=== PATIENT | female | born 1955 | race Caucasian/White ===

== ENCOUNTER → 2016-10-14 | Outpatient (CLI) | payer OTHER ==
[~2016-10-14] MED LIST: ANTIVERT; ANTIVERT PO; NO MEDICATIONS; NORVASC PO; PHENERGAN25 M1; PHENERGAN25 MG PO; ZITHROMAX PO
--- NOTE | ~2016-10-14 | MY6 ---
[facility] A Service of [facility] & [facility] RADIOLOGY TEXT RESULTS PATIENT: COREEN BLACK LOCATION: [facility] : 59 UNIT #: [id number] AGE: [address]: Jennifer Lund MD SEX: F ORDER DR: [id number] [facility] [address] [place], [place] [address] [id number] O MR#: [id number] Acc #: [id number] NAME: COREEN BLACK : 1955 SEX: F STUDY DATE/TIME: 10/14/2016 UNIT: [facility] ROOM: STUDY DESCRIPTION: MY Mammogram Dx Dig Edi Attending Physician: Jennifer Lund M.D. Ordering Physician: Jennifer Lund M.D. Primary Care Physician: Jennifer Lund M.D. MEDICAL IMAGING REPORT This report is preliminary unless electronic signature is present EXAM Bilateral digital diagnostic mammogram. INDICATIONS Abnormal mass in the left breast with calcifications and a small nodule measuring 5 mm in size in the right breast. The patient's only old study is from 11/20/2015. Additional workup was recommended at that time, but the patient did not have insurance, and she has just returned now. TECHNIQUE Today's study includes MLO, CC and straight ML view of the left breast and spot compression views of the right breast, as well as a straight ML view. They are all done with digital technique. FINDINGS The right images again show a small nodule measuring 5 mm in diameter. To about 3 o'clock in the breast, it is best seen on the CC view. There may be a small lymph node medial to it. This is unchanged since prior study which is 10 months ago. In the left breast, there is a large well circumscribed dense mass just behind the nipple. It measures 4.5 x 4.7 cm and has increased in size significantly since the prior study. The ultrasound shows a big complex lesion with movable internal echoes as well as solid material that has increased vascularity. According to the patient, this has been aspirated before in the surgeon's office, and there are also calcifications anterior to this lesion. There are several calcifications present. I believe they have a benign appearance and they are stable over last 10 months. IMPRESSION 1. 4.7 cm lesion in the retroareolar region of the left breast, on ultrasound, it is a complex abnormality, with solid and cystic components. An ultrasound-guided aspiration biopsy is recommended. [facility] A Service of [facility] & [facility] RADIOLOGY TEXT RESULTS PATIENT: COREEN BLACK LOCATION: [facility] : 59 UNIT #: [id number] AGE: [address]: Jennifer Lund MD SEX: F ORDER DR: The solid component should be biopsied with core technique, and the fluid can be aspiration for cytology. 2. Calcifications anterior to the mass in the left breast are likely benign and stable with a 10-month period. I would recommend a repeat mammogram in 6-9 months to document stability. There is also a 4-5 mm nodule in the right breast which is stable over the last 10 months, and that can be evaluated at the same time with repeat mammogram on the right side. BIRADS category 4. 3. The patient states she is going to go see the surgeon, , on Tuesday, so we have delayed scheduling the ultrasound aspiration biopsy until she has seen the surgeon. I have notified the breast care advocates of the patient's name. Patients over the age of 40 are entered into a reminder system with target due date for the next mammogram. A result letter will also be sent to the patient. BIRADS: 4 Suspicious abnormality; biopsy should be considered. Dictated by... Abel Delgado M.D. THIS IS AN ELECTRONICALLY VERIFIED REPORT Abel Delgado M.D. at 10/15/2016 7:09 AM OLIVE/laine TD: 10/14/2016 15:44 JOB #: [id number] MEDICAL IMAGING REPORT Page 1 of 1 COPY
--- NOTE | ~2016-10-14 | US17 ---
[facility] A Service of [facility] & [facility] RADIOLOGY TEXT RESULTS PATIENT: COREEN BLACK LOCATION: [facility] : 59 UNIT #: [id number] AGE: [address]: Jennifer Lund MD SEX: F ORDER DR: [id number] [facility] [address] [place], [place] [address] [id number] O MR#: [id number] Acc #: [id number] NAME: COREEN BLACK : 1955 SEX: F STUDY DATE/TIME: 10/14/2016 13:48 UNIT: [facility] ROOM: STUDY DESCRIPTION: US Breast Bilateral Attending Physician: Jennifer Lund M.D. Ordering Physician: Jennifer Lund M.D. Primary Care Physician: Jennifer Lund M.D. MEDICAL IMAGING REPORT This report is preliminary unless electronic signature is present REVISED REPORT SEE ADDENDUM EXAM Bilateral breast ultrasound INDICATION 5 mm nodule right breast 3 o'clock and large nearly 5 cm mass behind the left nipple. FINDINGS Ultrasound of the right breast 3 o'clock shows a small hypoechoic area measuring 5 x 3 mm in size. It is difficult tell if this represents the nodule on the mammogram. It is partially cystic and appears benign and the ultrasound of the retroareolar region of the left breast shows a 4.0 x 4.0 x 3.8 cm well circumscribed and L view has echogenic fluid anteriorly and this has moving debris within it. The posterior portion of the lesion is much more echogenic and appears to be in soft tissue but could represent subtle debris. There is a polypoid lesion hanging in the middle of the lesion that is up to 2 cm in diameter and it has internal flow and has a stalk attaching it to the anterior wall. IMPRESSION 1. No suspicious findings noted on the right side. The nodules seen on the mammogram has been stable now for 10 months and I suggest followup mammogram in 6-9 months. 2. The left breast abnormality is very complex and suspicious. It is a large cystic lesion with a polypoid lesion projecting in the middle of it and the polypoid lesion is at least 2 cm in diameter and has internal flow. The fluid within the cyst that has extensive fine STS. [facility] A Service of [facility] & [facility] RADIOLOGY TEXT RESULTS PATIENT: COREEN BLACK LOCATION: [facility] : 59 UNIT #: [id number] AGE: [address]: Jennifer Lnud MD SEX: F ORDER DR: debris that moves with sound waves and there is a much denser appearing posterior layer that might represent sediment. Ultrasound-guided aspiration of the biopsy is recommended. I discussed with the patient and notified the breast clinical manager home care. The patient is going to see the surgeon on Tuesday and I told her to wait until she sees him before scheduling the procedure. BIRADS: 4 Suspicious abnormality; biopsy should be considered. Dictated by... Abel Delgado M.D. THIS IS AN ELECTRONICALLY VERIFIED REPORT Abel Delgado M.D. 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 Dictated by... Abel Delgado M.D. THIS IS AN ELECTRONICALLY VERIFIED REPORT Abel Delgado M.D. at 10/15/2016 7:09 AM Edilma TD: 10/14/2016 16:00 JOB #: [id number] CC: Natalie/invision Please Delete MEDICAL IMAGING REPORT Page 1 of 1 COPY
== END | disposition home or self-care (01) ==
LOC: CWCC 12:55
DX: N60.02 Solitary cyst of left breast (principal); N63 Unspecified lump in breast; R92.1 Mammographic calcification found on diagnostic imaging of breast
CPT/HCPCS: 76641; G0204